=== PATIENT | male | born 1955 | race Two or more races ===

== ENCOUNTER → 2022-02-15 | Outpatient (CLI) | payer OTHER | END | disposition home or self-care (01) | LOC: RAD 09:38 | PROVIDERS: ATTEND Internal Medicine | DX: R07.89 Other chest pain (principal) ==

== ENCOUNTER 2022-12-26 06:00 | Day surgery (SDC) | payer OTHER ==
[2022-12-20 10:05] LABS: PH,URINE 5.5 (5.0-8.0); URINE APPEARANCE Clear; URINE BILIRRUBIN Negative (NEGATIVE); URINE BLOOD Trace; URINE COLOR Yellow; URINE GLUCOSE Negative (NEGATIVE); URINE LEUKOCYTE Trace; URINE NITRATE Negative; URINE PROTEIN Negative (NEGATIVE); URINE UROBILINOGEN 0.2 E.U./dl
[2022-12-20 10:06] LABS: URINE BACTERIA 15.1 uL (0.0-1933); URINE RBC 16.8 uL (0.0-20.8); URINE WBC 10.8 uL (0.0-23.2)
[2022-12-20 10:08] LABS: HEMATOCRIT 48.9 % (39.0-48.0); HEMOGLOBIN 16.7 g/dL (13-16.00); MEAN CORPUSCULAR HEMOGLOBIN 32.8 pg (27.00-32.0); MEAN CORPUSCULAR HGB CONC 34.2 g/dl (32.0-36.0); PLATELET COUNT 244 K/uL (150-450); RED BLOOD COUNT 5.09 M/uL (4.00-6.00); RED CELL DISTRIBUTION WIDTH 13.6 % (11.5-14.5)
[2022-12-20 10:15] LABS: URINE EPITHELIAL CELLS 1.2 uL (0.0-38.8)
[2022-12-20 10:46] LABS: INR 2.38
[2022-12-20 10:52] LABS: ALBUMIN 4.1 gm/dL (3.4-5.0); BILIRUBIN TOTAL 1.01 mg/dL (0.3-1.2); CALCIUM 9.3 mg/dL (8.5-10.1); CREATININE SERUM 0.8 mg/dL (0.70-1.30); GFR 95.85; GLOBULINA 3.6 G/DL (2.4-3.5); POTASSIUM 4.56 mEq/L (3.5-5.1); TOTAL PROTEIN 7.7 gm/dL (6.4-8.2)
[2022-12-20 10:59] LABS: PROTHROMBIN TIME 23.4 SECONDS (9.0-11.5)
[2022-12-20 11:00] LABS: PARTIAL THROMBOPLASTIN TIME 45.8 SECONDS (22.0-34.0)
[~2022-12-26 06:00] MED LIST: LIPIT PO; LOSART PO; TOPROL XL25 M1 PO; WARFARIN SODIUM2 MG PO
== END 2022-12-26 13:25 | disposition home or self-care (01) ==
LOC: CIR.AMB 06:00
PROVIDERS: ATTEND Surgery
DX: K40.90 Unilateral inguinal hernia, without obstruction or gangrene, not specified as recurrent (principal); Z20.822 Contact with and (suspected) exposure to COVID-19; I10 Essential (primary) hypertension; E78.5 Hyperlipidemia, unspecified
CPT/HCPCS: 49650; S2900

== ENCOUNTER 2024-01-22 06:00 | Day surgery (SDC) | payer OTHER ==
[2024-01-16 11:15] VITALS: BP 127/79
[2024-01-16 11:20] LABS: PH,URINE 5.5 (5.0-8.0); URINE APPEARANCE Clear; URINE BILIRRUBIN Negative (NEGATIVE); URINE BLOOD Trace; URINE COLOR Dark Yellow; URINE GLUCOSE Negative (NEGATIVE); URINE KETONE Negative (NEGATIVE); URINE LEUKOCYTE Small; URINE NITRATE Negative; URINE PROTEIN 30 (NEGATIVE); URINE UROBILINOGEN 0.2 E.U./dl
[2024-01-16 11:21] LABS: URINE BACTERIA 17.6 uL (0.0-1933); URINE EPITHELIAL CELLS 4.7 uL (0.0-38.8); URINE RBC 15.7 uL (0.0-20.8); URINE WBC 10.3 uL (0.0-23.2)
[2024-01-16 11:23] LABS: HEMATOCRIT 46.6 % (39.0-48.0); HEMOGLOBIN 16.1 g/dL (13-16.00); MEAN CELL VOLUME 97.3 fL (80.0-100.00); MEAN CORPUSCULAR HEMOGLOBIN 33.7 pg (27.00-32.0); MEAN CORPUSCULAR HGB CONC 34.6 g/dl (32.0-36.0); PLATELET COUNT 245 K/uL (150-450); RED BLOOD COUNT 4.79 M/uL (4.00-6.00); RED CELL DISTRIBUTION WIDTH 13.2 % (11.5-14.5)
[2024-01-16 11:35] LABS: URINE CAST 0.61 uL (0.0-1.40)
[2024-01-16 11:49] LABS: INR 1.98
[2024-01-16 11:53] LABS: PARTIAL THROMBOPLASTIN TIME 43.4 SECONDS (22.0-34.0); PROTHROMBIN TIME 20.5 SECONDS (9.0-11.5)
[2024-01-16 12:25] LABS: ALBUMIN 4.3 gm/dL (3.4-5.0); BILIRUBIN TOTAL 1.02 mg/dL (0.3-1.2); CALCIUM 9.6 mg/dL (8.5-10.1); CREATININE SERUM 0.86 mg/dL (0.70-1.30); GFR 87.91; GLOBULINA 3.3 G/DL (2.4-3.5); POTASSIUM 5.11 mEq/L (3.5-5.1); TOTAL PROTEIN 7.6 gm/dL (6.4-8.2)
[~2024-01-22] VITALS: Ht 170.2 cm; Wt 83.9 kg
[~2024-01-22 06:00] MED LIST changes: +B12 ACTIVE1000 MCG PO; +FOLIC ACID0.8 M1 PO; +LIPITOR20 MG PO; +MAGNESIUM500 MG PO
[2024-01-22] MEDS ORDERED: CEFAZOLIN SODIUM 1,000 MG VIAL IV ONE (10:15)
[2024-01-22] MEDS ORDERED: SUGAMMADEX SODIUM 200 MG/2 ML VIAL IV ONE (11:30)
[2024-01-22] MEDS ORDERED: MORPHINE SULFATE 4 MG/ML VIAL IV ONE ×3 (11:30→12:30)
== END 2024-01-22 14:25 | disposition home or self-care (01) ==
LOC: CIR.AMB 06:00
PROVIDERS: ATTEND Surgery
DX: K40.91 Unilateral inguinal hernia, without obstruction or gangrene, recurrent (principal); Z88.6 Allergy status to analgesic agent
CPT/HCPCS: 49520; C1781

== ENCOUNTER 2024-01-22 06:16 | Outpatient (CLI) | payer OTHER ==
[2024-01-22 07:34] LABS: INR 1.02; PARTIAL THROMBOPLASTIN TIME 33.6 SECONDS (22.0-34.0); PROTHROMBIN TIME 11.1 SECONDS (9.0-11.5)
== END 2024-01-22 06:35 | disposition home or self-care (01) ==
LOC: LAB 06:16
PROVIDERS: ATTEND Surgery
DX: I10 Essential (primary) hypertension (principal)